=== PATIENT | female | born 1980 | race Caucasian/White ===

== ENCOUNTER 2018-04-26 13:04 | Observation (INO) ==
[2018-04-26] MEDS ORDERED: Acetaminophen 325 MG Tablet PO PRN (13:20)
--- NOTE | 2018-04-26 13:37 | P.HPOB ---
History of Present Illness Service: obstetrics Primary Care Physician: No Primary Care Physician Chief Complaint: chest pain, 29 weeks History of Present Illness: 37 yo G1 with EDC 07/11/18 by LMP c/w 8 week sonogram seen in office 04/26/18 for routine OB appointment, uncomplicated course up until today. At visit pt states over past 1-2 weeks has had daily episodes of central chest pain with radiation to throat, can occur at any time, has woken from sleep, longest episode lasted almost 4 hours. Sometimes reports palpitations with pain episodes. No shortness of breath, no edema, no vision changes, no jaw pain , no extremity numbness or tingling, denies change in diet, exercise, activity. States staying hydrated, no new or increased stress at work or home that she is aware of. Denies reflux or GERD-type symptoms. No diarrhea, no dysuria, no fevers, no sick symptoms. Endorses good movement. Did have episode of spotting about 2 weeks ago, called office and marketing operations assistant physician Dr. Stafford counseled pelvic rest, which pt has been following. Spotting lasted for 1 day, no cramps, no discharge today, denies contractions. Pain in chest is worsened with deep breath. No change in pain with laying versus standing, has not taken anything for the pain. Currently 0/10 but with deep inspiration states feels tightening and pain 3/10 pain scale. Weeks Gestation:: 29 Para: 0 : 1 Last menstrual period: 10/04/17 Total # of Miscarriage(s): 0 Total # of Abortions (Spontaneous & Elective): 0 Review of Systems All other systems reviewed negative except as stated in HPI [facility] - Medical History Medical History: Medical History (Last Updated 04/26/18 @ 13:30 by Nichol Moreno MD) History of migraine headaches - Surgical History Surgical History: Surgical History (Last Updated 04/26/18 @ 13:31 by Nichol Moreno MD) Hx of LASIK - Family History Family History: Family History (Last Updated 04/26/18 @ 13:31 by iNchol Moreno MD) Other No significant family history - Social History I have reviewed the patient's Social History: Yes - Tobacco History Second Hand Smoke Exposure: No Tobacco Use In Past 30 Days: No Smoking Status: Never smoker - Alcohol History How Often Do You Have a Drink Containing Alcohol: Never - Substance Use History Substance History: No History of Abuse - Travel History History of Recent Travel: No Recent Travel in the [place] Within the Last 8 Weeks: No Recent Travel Out of the Country Within the Last 8 Weeks: No Medications and Allergies Allergies Allergy/AdvReac Type Severity Reaction Status Date / Time No Known Allergies Allergy Verified 04/26/18 13:24 Home Medications Medication Instructions Recorded Confirmed Type 1 tab/day PO DAILY 04/26/18 04/26/18 History Exam Vital signs: Intake & Output 04/25/18 04/26/18 04/26/18 18:59 06:59 18:59 Weight 72.575 kg - Constitutional no acute distress - Routine HEENT Exam Head: Present: normocephalic, atraumatic Eye: Present: EOMI ENT: Present: mucous membranes moist - Routine Neck Exam Present: supple, full ROM - Routine Chest/Breast/Axilla Exam Chest wall: Absent: tenderness, mass Axillae: Absent: lymphadenopathy - Routine Respiratory Exam Present: CTA bilaterally. Absent: accessory muscle use - Routine Cardiovascular Exam Present: RRR. Absent: bradycardia - Routine Abdominal Exam Present: normoactive bowel sounds. Absent: tenderness Comments: gravid c/w dates, movement palpable - Routine Extremities Exam Absent: edema, tenderness - Routine Skin Exam Present: intact. Absent: cyanosis - Routine Neurological Exam Present: alert, oriented X3 Caprini VTE Risk Assessment Caprini VTE Risk Assessment: No/Low Risk (score <= 1) VTE Pharmacological Exception Reason: Epidural catheter Caprini Risk Assessment Model: Point Value = 1 Point Value = 2 Point Value = 3 Point Value = 5 Age 41-60 Minor surgery BMI > 25 kg/m2 Swollen legs Varicose veins or History of unexplained or recurrent spontaneous Oral contraceptives or hormone replacement Sepsis (< 1 month) Serious lung disease, including pneumonia (< 1 month) Abnormal pulmonary function Acute myocardial infarction Congestive heart failure (< 1 month) History of inflammatory bowel disease Medical patient at bed rest Age 61-74 Arthroscopic surgery Major open surgery (> 45 min) Laparoscopic surgery (> 45 min) Malignancy Confined to bed (> 72 hours) Immobilizing plaster cast Central venous access Age >= 75 History of VTE Family history of VTE Factor V Leiden Prothrombin [id number] Lupus anticoagulant Anticardiolipin antibodies Elevated serum homocysteine Heparin-induced thrombocytopenia Other congenital or acquired thrombophilia Stroke (< 1 month) Elective arthroplasty Hip, pelvis, or leg fracture Acute spinal cord injury (< 1 month) Prophylaxis Regimen: Total Risk Factor Score Risk Level Prophylaxis Regimen 0-1 Low Early ambulation 2 Moderate Order ONE of the following: *Sequential Compression Device (SCD) *Heparin 5000 units SQ BID 3-4 Higher Order ONE of the following medications: *Heparin 5000 units SQ TID *Enoxaparin/Lovenox 40 mg SQ daily (WT < 150 kg, CrCl > 30 mL/min) *Enoxaparin/Lovenox 30 mg SQ daily (WT < 150 kg, CrCl > 10-29 mL/min) *Enoxaparin/Lovenox 30 mg SQ BID (WT < 150 kg, CrCl > 30 mL/min) AND/OR *Sequential Compression Device (SCD) 5 or more Highest Order ONE of the following medications: *Heparin 5000 units SQ TID (Preferred with Epidurals) *Enoxaparin/Lovenox 40 mg SQ daily (WT < 150 kg, CrCl > 30 mL/min) *Enoxaparin/Lovenox 30 mg SQ daily (WT < 150 kg, CrCl > 10-29 mL/min) *Enoxaparin/Lovenox 30 mg SQ BID (WT < 150 kg, CrCl > 30 mL/min) AND *Sequential Compression Device (SCD) Assessment and Plan - Diagnosis (1) Chest pain Code(s): R07.9 - Chest pain, unspecified Status: Acute (2) 29 weeks gestation of Code(s): Z3A.29 - 29 weeks gestation of Status: Acute (3) Amniotic fluid index borderline low Code(s): O28.8 - Other abnormal findings on screening of mother Status: Acute (4) Advanced maternal age (AMA) in Status: Chronic - Plan 37 yo G1 with EDC 07/11/18, sanchez male IUP at 29w2d, admit for workup of acute chest pain 1) chest pain: cardiology consult ordered, EKG and ECHO ordered; will await cardiology recommendations for labwork; pt just had outpatient labs 03/29/18 with Hgb/Hct 03/20/30/, urine drug screen negative, passed 1h GTT (116), and Hep B, HIV, RPR negative 2) borderline low amniotic fluid: 5.36cm on office scan 04/26/18; continuous monitoring for now, IV fluid hydration, MFM consult and repeat imaging tomorrow 04/27/18 3) AMA: normal anatomy sono, male, cfDNA negative, declined msAFP; EFW on office sono 04/26/18 56.6%tile, WANG 5.36cm 4) status: 8/8 BPP in office but low amniotic fluid and low baseline FHR 110s-120s; continuous monitoring for now, MFM consult ordered for full eval as well 5) dispo: not meeting criteria Discharge Planning: not meeting criteria (1) Chest pain Qualifiers: Chest pain type: chest pain on breathing Qualified Code(s): R07.1 - Chest pain on breathing; R07.81 - Pleurodynia
[2018-04-26 15:01] LABS: Baso % (Auto) 0.2 % (0.0-2.0); Eos % (Auto) 0.7 % (0.0-4.0); Hematocrit 31.5 % (35.0-46.0); Hemoglobin 10.9 gm/dL (11.6-15.3); Lymph # (Auto) 1.3 th/mm3 (1.0-4.8); Lymph % (Auto) 19.9 % (9.0-44.0); Mean Corpuscular HGB Conc 34.8 % (32.0-36.0); Mean Corpuscular Hemoglobin 34.1 pg (27.0-34.0); Mean Corpuscular Volume 98.2 fL (80.0-100.0); Mono # (Auto) 0.5 th/mm3 (0.0-0.9); Mono % (Auto) 6.9 % (0.0-8.0); Neut # (Auto) 4.9 th/mm3 (1.8-7.7); Neut % (Auto) 72.3 % (16.0-70.0); Platelet Count 191 th/mm3 (150-450); Red Blood Count 3.21 mil/mm3 (4.00-5.30); White Blood Count 6.8 th/mm3 (4.0-11.0)
[2018-04-26 15:04] LABS: Amphetamine Urine With Conf Neg (Neg); Bacteria,Urine Moderate /hpf; Benzodiazepine Urine With Conf Neg (Neg); Bilirubin,Urine Negative (Negative); Clarity,Urine Hazy (Clear); Cocaine Urine With Conf Neg (Neg); Color,Urine Yellow (Yellw/Straw); Glucose,Urine (UA) Negative (Negative); Leukocyte Esterase,Urine Negative (Negative); Mucus,Urine Few /lpf (Occasional); Nitrite,Urine Negative (Negative); Opiates Urine With Conf Neg (Neg); Specific Gravity,Urine 1.011 (1.002-1.035); Squamous Epithelial Cell,Urine <1 /hpf (0-5)
[2018-04-26 15:07] LABS: Cannabinoid Urine With Conf Neg (Neg)
[2018-04-26 15:24] LABS: Anion Gap 10 meq/L (5-15); Blood Urea Nitrogen 8 mg/dL (7-18); Calcium 8.6 mg/dL (8.5-10.1); Carbon Dioxide 24.2 meq/L (21.0-32.0); Chloride 107 meq/L (98-107); Glomerular Filtration Rate Greater Than 89 mL/min (>89); Glucose,Random 69 mg/dL (74-106); Potassium 3.7 meq/L (3.5-5.1); Sodium 141 meq/L (136-145)
--- NOTE | 2018-04-26 15:34 | ECHRPT ---
Indication: CHEST PAIN/29 WEEKS CONCLUSIONS No regional wall motion abnormalities are present. Normal left ventricular size. Wall thickness is normal. The left ventricular systolic function is normal with an estimated ejectio n fraction in the range of 60-65%. There is trace tricuspid valve regurgitation. BP: / HR: Rhythm: MEASUREMENTS (Male / Female) Normal Values Technical Quality: 2D ECHO LV Diastolic Diameter PLAX 4.4 cm 4.2 - 5.9 / 3.9 - 5.3 cm LV Systolic Diameter PLAX 3.0 cm IVS Diastolic Thickness 0.7 cm 0.6 - 1.0 / 0.6 - 0.9 cm LVPW Diastolic Thickness 0.7 cm 0.6 - 1.0 / 0.6 - 0.9 cm LV Relative Wall Thickness 0.3 RV Internal Dim ED PLAX 2.6 cm LVOT Diameter 1.9 cm Aortic Root Diameter 2.7 cm LA Systolic Diameter LX 2.5 cm 3.0 - 4.0 / 2.7 - 3.8 cm M-MODE AV Cusp Separation MM 1.9 cm DOPPLER AV Peak Velocity 134.0 cm/s AV Peak Gradient 7.2 mmHg AV Mean Gradient 4.0 mmHg AV Velocity Time Integral 23.7 cm LVOT Peak Velocity 114.0 cm/s LVOT Peak Gradient 5.2 mmHg LVOT Velocity Time Integral 17.4 cm AV Area Cont Eq vti 2.1 cm AV Area Cont Eq pk 2.4 cm Mitral E Point Velocity 68.6 cm/s Mitral A Point Velocity 40.5 cm/s Mitral E to A Ratio 1.7 LV E' Lateral Velocity 14.9 cm/s Mitral E to LV E' Lateral Ratio 4.6 LV E' Septal Velocity 11.7 cm/s Mitral E to LV E' Septal Ratio 5.9 TR Peak Velocity 160.0 cm/s TR Peak Gradient 10.2 mmHg PV Peak Velocity 51.9 cm/s PV Peak Gradient 1.1 mmHg FINDINGS LEFT VENTRICLE No regional wall motion abnormalities are present. Normal left ventricular size. Wall thickness is normal. The left ventricular systolic function is normal with an estimated ejectio n fraction in the range of 60-65%. RIGHT VENTRICLE Normal right ventricular size and systolic function. LEFT ATRIUM The left atrial size is normal. RIGHT ATRIUM The right atrial size is normal. ATRIAL SEPTUM Normal atrial septal thickness without atrial level shunting by limited color doppler interrogation. AORTA The aortic root and proximal ascending aorta are normal in size on limited imaging. MITRAL VALVE Structurally normal mitral valve. No mitral valve stenosis or regurgitation. AORTIC VALVE Trileaflet aortic valve. No aortic valve stenosis or regurgitation. TRICUSPID VALVE There is trace tricuspid valve regurgitation. PULMONARY VALVE The pulmonary valve is not well visualized. VESSELS The inferior vena cava is normal in size. PERICARDIUM No pericardial effusion. Darío Medrano MD (Electronically Signed) Final Date:26 April 2018 15:33
[2018-04-26 15:57] LABS: Creatine Kinase 31 U/L (26-192)
--- NOTE | 2018-04-26 16:01 | MB ---
cc: Darío Medrano MD DATE: 04/26/2018 REASON FOR CONSULTATION: Chest pain. HISTORY OF PRESENT ILLNESS: The patient is a 37-year-old white female with a history of migraine headaches, who was admitted to the hospital with chest pain. The patient, who is 29 weeks , developed a substernal chest discomfort about 4 days ago without associated shortness of breath, nausea or diaphoresis. The first 2 days, the chest discomfort would last only a few minutes, occurring sporadically throughout the day. The last couple of days, the chest discomfort has been more constant, lasting several hours at a time in a constant fashion. Occasionally, taking a deep breath and certain position changes exacerbate the chest pain. She denies cough, hemoptysis, pedal edema, dizziness, syncope, near syncope, palpitations. PAST MEDICAL HISTORY: Migraine headaches. CARDIAC MEDICATIONS AT HOME: None. ALLERGIES: NO KNOWN DRUG ALLERGIES. FAMILY HISTORY: There is no significant family history of early myocardial infarction. SOCIAL HISTORY: The patient denies alcohol or tobacco abuse. REVIEW OF SYSTEMS: As in the history of present illness, otherwise negative or noncontributory. She also denies melena, dyspepsia, bright red blood per rectum, abdominal pain. PHYSICAL EXAMINATION: VITAL SIGNS: Blood pressure 106/77 with a pulse of 83, respirations 18. GENERAL: She is a well-developed, well-nourished white female, in no acute distress. NECK: Jugular venous pressure is normal. Carotid pulses are 2+ bilaterally and without bruits. CHEST: Reveals clear lungs smith. CARDIAC: She has a regular rhythm and rate without S3, S4, or murmur. ABDOMEN: She has a soft, nontender abdomen. Bowel sounds are present. There is no definite hepatosplenomegaly. EXTREMITIES: Reveals no clubbing, cyanosis or edema. LABORATORY DATA: EKG shows normal sinus rhythm, normal EKG. LABORATORY DATA: Includes normal CBC. IMPRESSION: Exceedingly atypical chest pains in this 37-year-old white female with a history of migraine headaches. Despite prolonged chest discomforts in the last 4 days, EKG is normal. The patient has no risk factors for coronary disease. The chest pain appears to be somewhat more musculoskeletal in origin, increasing with certain position changes. Overall, clinical suspicion for pulmonary embolism is low. RECOMMENDATIONS: 1. Noncardiac chest pain evaluation. 2. Check a single set of cardiac enzymes. 3. Check a 2-D echo to assess her left ventricular function. 4. We will followup as needed for any abnormalities seen on echocardiogram and laboratory testing. MD TOSHIA Hadley/ct , 03:20 PM , 03:27 PM
--- NOTE | 2018-04-27 07:12 | P.OBANTE ---
Subjective Interval History: no new complaints, feeling well, resting in bed, no current chest pain reported ; endorses good movement Antepartum ROS: Reports: movement normal Denies: New complaints, Loss of fluid, Vaginal bleeding, Contractions Objective Vital Signs and I&O: Vital Signs 04/26/18 13:29 04/26/18 13:30 04/26/18 14:40 Temperature 98.6 F Pulse Rate 93 H 92 H Respiratory Rate 18 Blood Pressure 106/77 04/26/18 15:15 04/26/18 15:25 04/26/18 15:55 Temperature Pulse Rate 83 88 85 Respiratory Rate Blood Pressure 04/26/18 16:45 04/26/18 16:48 04/26/18 16:49 Temperature 98.1 F Pulse Rate 87 88 Respiratory Rate 18 Blood Pressure 99/60 L 04/26/18 17:25 04/26/18 17:45 04/26/18 17:55 Temperature Pulse Rate 91 H 100 H 111 H Respiratory Rate Blood Pressure 04/26/18 18:25 04/26/18 19:55 04/26/18 19:59 Temperature 98.4 F Pulse Rate 94 H 99 H 87 Respiratory Rate 18 Blood Pressure 94/65 L 04/26/18 21:55 04/26/18 23:10 04/26/18 23:55 Temperature Pulse Rate 86 81 72 Respiratory Rate Blood Pressure 85/55 L 04/27/18 01:55 04/27/18 04:55 04/27/18 05:00 Temperature 98.4 F Pulse Rate 72 74 Respiratory Rate 18 Blood Pressure 83/48 L 04/27/18 05:45 Temperature Pulse Rate 72 Respiratory Rate Blood Pressure Intake & Output 04/26/18 04/27/18 04/27/18 18:59 06:59 18:59 Intake Total 1999 Balance 1999 Weight 72.575 kg Intake: IV 1999 LR 1000 mL Inj 1,000 ML @ 100 1999 mls/hr IV.CONT .Q10H [facility] Rx#: [id number] Other: Weight On Admission 72.575 kg Lab and Micro Results: Laboratory Results - last 24 hr 04/26/18 04/26/18 04/26/18 14:30 14:30 14:30 WBC 6.8 RBC 3.21 L Hgb 10.9 L Hct 31.5 L MCV 98.2 MCH 34.1 H MCHC 34.8 RDW 12.0 Plt Count 191 MPV 7.0 Neut % (Auto) 72.3 H Lymph % (Auto) 19.9 [place] % (Auto) 6.9 Eos % (Auto) 0.7 Baso % (Auto) 0.2 Neut # (Auto) 4.9 Lymph # (Auto) 1.3 [place] # (Auto) 0.5 Eos # (Auto) 0.0 Baso # (Auto) 0.0 WBC Differential . Differential Comment Auto diff final Sodium 141 Potassium 3.7 Chloride 107 Carbon Dioxide 24.2 Anion Gap 10 BUN 8 Creatinine 0.56 Estimated GFR Greater than 89 Random Glucose 69 L Calcium 8.6 Total Creatine Kinase Troponin I Urine Color Urine Clarity Urine pH Ur Specific War Urine Protein Urine Glucose (UA) Urine Ketones Urine Occult Blood Urine Nitrate Urine Bilirubin Urine Urobilinogen Ur Leukocyte Esterase Urine RBC Urine WBC Ur Squamous Epith Cells Urine Bacteria Urine Mucus Micro UA Comment Ur Microscopic Review Urine Culture Comments Urine Opiates Screen Ur Barbiturates Screen Ur Amphetamine Screen U Benzodiazepines Scrn Urine Cocaine Screen U Cannabinoids Screen Blood Type O Positive Blood Type Recheck Required 04/26/18 04/26/18 04/26/18 14:30 14:30 14:30 WBC RBC Hgb Hct MCV MCH MCHC RDW Plt Count MPV Neut % (Auto) Lymph % (Auto) [place] % (Auto) Eos % (Auto) Baso % (Auto) Neut # (Auto) Lymph # (Auto) [place] # (Auto) Eos # (Auto) Baso # (Auto) WBC Differential Differential Comment Sodium Potassium Chloride Carbon Dioxide Anion Gap BUN Creatinine Estimated GFR Random Glucose Calcium Total Creatine Kinase 31 Troponin I Less than 0.02 L Urine Color Yellow Urine Clarity Hazy H Urine pH 6.0 Ur Specific War 1.011 Urine Protein Negative Urine Glucose (UA) Negative Urine Ketones Negative Urine Occult Blood Negative Urine Nitrate Negative Urine Bilirubin Negative Urine Urobilinogen Less than 2 Ur Leukocyte Esterase Negative Urine RBC Less than 1 Urine WBC 4 Ur Squamous Epith Cells <1 Urine Bacteria Moderate H Urine Mucus Few H Micro UA Comment Culture indicated Ur Microscopic Review Not Reportable Urine Culture Comments Culture indicated Urine Opiates Screen Neg Ur Barbiturates Screen Neg Ur Amphetamine Screen Neg U Benzodiazepines Scrn Neg Urine Cocaine Screen Neg U Cannabinoids Screen Neg Blood Type Blood Type Recheck Physical Exam: GENERAL: Well-nourished, well-developed patient. CARDIOVASCULAR: Regular rate and rhythm without murmurs, gallops, or rubs. RESPIRATORY: Breath sounds equal bilaterally. No accessory muscle use. ABDOMEN/GI: Abdomen soft, non-tender. Fundus: c/w dates GENITOURINARY: External Genitalia: deferred FHT's: Cat I tracing since admission EXTREMITIES: No cyanosis or edema, non-tender, without signs of DVT. Assessment and Plan - Diagnosis (1) Chest pain Code(s): R07.9 - Chest pain, unspecified Status: Acute (2) 29 weeks gestation of Code(s): Z3A.29 - 29 weeks gestation of Status: Acute (3) Amniotic fluid index borderline low Code(s): O28.8 - Other abnormal findings on screening of mother Status: Acute (4) Advanced maternal age (AMA) in Status: Chronic - Plan 37 yo G1 with EDC 07/11/18, sanchez male IUP at 29w3d, admit for workup of acute chest pain 1) chest pain: s/p cardiology consult; EKG, ECHO, and cardiac enzymes negative/ normal; suspect MSK and anxiety cause of pain; no additional intervention warranted at this time 2) borderline low amniotic fluid: 5.36cm on office scan 04/26/18; reactive tracing since admission, s/p IV fluid hydration, MFM consult and repeat imaging ordered for 04/27/18 3) AMA: normal anatomy sono, male, cfDNA negative, declined msAFP; EFW on office sono 04/26/18 56.6%tile, WANG 5.36cm 4) status: 8/8 BPP in office 04/26/18 but low amniotic fluid, MFM consult ordered for full eval as well 5) dispo: pending MFM recommendations & imaging this AM Discharge Planning: pending MFM eval (1) Chest pain Qualifiers: Chest pain type: chest pain on breathing Qualified Code(s): R07.1 - Chest pain on breathing; R07.81 - Pleurodynia
--- NOTE | 2018-04-27 07:37 | P.CONMF ---
History of Present Illness Consult date: 04/27/18 Requesting Physician: Nichol Moreno Reason for Consult: Oligohydramnios Primary Care Physician: Shannan Primary Care Physician Chief Complaint: chest pain, 29 weeks History of Present Illness: 37-year-old at 29w2d with SHASHANK 07/11/18 admitted 04/26 with complaints of chest pain. She reported chest pain since Monday 04/23, which she characterized as a deep ache. It was previously intermittent but became constant on 04/25. She has been evaluated by Cardiology and had a normal echocardiogram. She reports the chest pain has completely resolved. Ultrasound performed in OB office on 04/26 showed an estimated weight of 1408 grams/3 lb, 2 oz (56%ile) with an WANG of 5.4 cm. Patient denies contractions, abdominal pain, leakage of fluid, or vaginal bleeding. Speculum examination and Amnisure test were negative for rupture of membranes. Patient is of advance maternal age. She reports that she had a cell-free DNA test performed at OB office, which was low risk. She reports ultrasound in OB office showed no abnormalities or markers. Weeks Gestation:: 29 Medications and Allergies Active Medications: Active Medications Acetaminophen (Tylenol) 650 mg PO Q4H PRN PRN Reason: PAIN SCALE 1 TO 5 Lactated Ringer's (Lr 1000 Ml Inj) 1,000 mls @ 100 mls/hr IV.CONT .Q10H [facility] Last Admin: 04/27/18 06:05 Dose: 100 mls/hr Ondansetron HCl (Zofran Odt) 4 mg PO Q6H PRN PRN Reason: NAUSEA OR VOMITING Vit/Calcium/Iron/Folic Ac (Stuartnatal Plus 3) 1 tab PO DAILY [facility] Sodium Chloride (Ns Flush) 2 ml IV.FLUSH BID [facility]IE Last Admin: 04/27/18 06:05 Dose: Not Given Sodium Chloride (Ns Flush) 2 ml IV.FLUSH PRN PRN PRN Reason: FLUSH AFTER USING IV ACCESS Allergies Allergy/AdvReac Type Severity Reaction Status Date / Time No Known Allergies Allergy Verified 04/26/18 13:24 Home Medications Medication Instructions Recorded Confirmed Type 1 tab/day PO DAILY 04/26/18 04/26/18 History PMFSH - Family History Family History: Family History (Last Updated 04/26/18 @ 13:31 by Nichol Moreno MD) Other No significant family history - Tobacco History Second Hand Smoke Exposure: No Tobacco Use In Past 30 Days: No Smoking Status: Never smoker - Alcohol History How Often Do You Have a Drink Containing Alcohol: Never - Substance Use History Substance History: No History of Abuse - Travel History History of Recent Travel: No Recent Travel in the [place] Within the Last 8 Weeks: No Recent Travel Out of the Country Within the Last 8 Weeks: No - Immunization History Tetanus Immunization: Unsure Hx Influenza Vaccine This Season: Yes [employer] History SIZE MIXER History: Reports history of cervical dysplasia but no history of cervical excisional procedures such as LEEP or Cone Biopsy Obstetrical History: Physical Examination Vital Signs: Vital Signs - 24 hr 04/26/18 13:29 04/26/18 13:30 04/26/18 14:40 Temperature 98.6 F Pulse Rate 93 H 92 H Respiratory Rate 18 Blood Pressure 106/77 04/26/18 15:15 04/26/18 15:25 04/26/18 15:55 Temperature Pulse Rate 83 88 85 Respiratory Rate Blood Pressure 04/26/18 16:45 04/26/18 16:48 04/26/18 16:49 Temperature 98.1 F Pulse Rate 87 88 Respiratory Rate 18 Blood Pressure 99/60 L 04/26/18 17:25 04/26/18 17:45 04/26/18 17:55 Temperature Pulse Rate 91 H 100 H 111 H Respiratory Rate Blood Pressure 04/26/18 18:25 04/26/18 19:55 04/26/18 19:59 Temperature 98.4 F Pulse Rate 94 H 99 H 87 Respiratory Rate 18 Blood Pressure 94/65 L 04/26/18 21:55 04/26/18 23:10 04/26/18 23:55 Temperature Pulse Rate 86 81 72 Respiratory Rate Blood Pressure 85/55 L 04/27/18 01:55 04/27/18 04:55 04/27/18 05:00 Temperature 98.4 F Pulse Rate 72 74 Respiratory Rate 18 Blood Pressure 83/48 L 04/27/18 05:45 04/27/18 06:55 Temperature Pulse Rate 72 86 Respiratory Rate Blood Pressure Results - Labs CBC & Chem 7: 04/26/18 14:30 04/26/18 14:30 Labs: Laboratory Results - last 24 hr 04/26/18 04/26/18 04/26/18 14:30 14:30 14:30 WBC 6.8 RBC 3.21 L Hgb 10.9 L Hct 31.5 L MCV 98.2 MCH 34.1 H MCHC 34.8 RDW 12.0 Plt Count 191 MPV 7.0 Neut % (Auto) 72.3 H Lymph % (Auto) 19.9 [place] % (Auto) 6.9 Eos % (Auto) 0.7 Baso % (Auto) 0.2 Neut # (Auto) 4.9 Lymph # (Auto) 1.3 [place] # (Auto) 0.5 Eos # (Auto) 0.0 Baso # (Auto) 0.0 WBC Differential . Differential Comment Auto diff final Sodium 141 Potassium 3.7 Chloride 107 Carbon Dioxide 24.2 Anion Gap 10 BUN 8 Creatinine 0.56 Estimated GFR Greater than 89 Random Glucose 69 L Calcium 8.6 Total Creatine Kinase Troponin I Urine Color Urine Clarity Urine pH Ur Specific [place] Urine Protein Urine Glucose (UA) Urine Ketones Urine Occult Blood Urine Nitrate Urine Bilirubin Urine Urobilinogen Ur Leukocyte Esterase Urine RBC Urine WBC Ur Squamous Epith Cells Urine Bacteria Urine Mucus Micro UA Comment Ur Microscopic Review Urine Culture Comments Urine Opiates Screen Ur Barbiturates Screen Ur Amphetamine Screen U Benzodiazepines Scrn Urine Cocaine Screen U Cannabinoids Screen Blood Type O Positive Blood Type Recheck Required 04/26/18 04/26/18 04/26/18 14:30 14:30 14:30 WBC RBC Hgb Hct MCV MCH MCHC RDW Plt Count MPV Neut % (Auto) Lymph % (Auto) [place] % (Auto) Eos % (Auto) Baso % (Auto) Neut # (Auto) Lymph # (Auto) [place] # (Auto) Eos # (Auto) Baso # (Auto) WBC Differential Differential Comment Sodium Potassium Chloride Carbon Dioxide Anion Gap BUN Creatinine Estimated GFR Random Glucose Calcium Total Creatine Kinase 31 Troponin I Less than 0.02 L Urine Color Yellow Urine Clarity Hazy H Urine pH 6.0 Ur Specific [place] 1.011 Urine Protein Negative Urine Glucose (UA) Negative Urine Ketones Negative Urine Occult Blood Negative Urine Nitrate Negative Urine Bilirubin Negative Urine Urobilinogen Less than 2 Ur Leukocyte Esterase Negative Urine RBC Less than 1 Urine WBC 4 Ur Squamous Epith Cells <1 Urine Bacteria Moderate H Urine Mucus Few H Micro UA Comment Culture indicated Ur Microscopic Review Not Reportable Urine Culture Comments Culture indicated Urine Opiates Screen Neg Ur Barbiturates Screen Neg Ur Amphetamine Screen Neg U Benzodiazepines Scrn Neg Urine Cocaine Screen Neg U Cannabinoids Screen Neg Blood Type Blood Type Recheck - Imaging Ultrasound performed in testing unit: -Breech presentation -Estimated weight 1421 grams/3 lb, 2 oz (48%ile) -Anterior placenta -WANG 13.8 cm -Normal umbilical artery Doppler studies Impression and Recommendations Counselin-year-old at 29w2d with SHASHANK 07/11/18: -Oligohydramnios on OB ultrasound 04/26/18 with WANG 5.4 cm. -Speculum examination negative, per OB. -Amnisure test in office negative, per OB. -Advanced maternal age -Cell-free DNA per chart, negative -History of chest pain, resolved -Normal echocardiogram -s/p Cardiology evaluation Recommendations: -Daily kick counts -Routine obstetric care Discussed with OB, Dr. Moreno. Professional Services: Thank you for allowing us to participate in the care of your Obstetrical patient. Consultation time: [40] minutes
[2018-04-27] MEDS ORDERED: Prenatal Vit/Ca/Iron/Folic Acid Tablet PO SCH ×2 (09:00)
--- NOTE | 2018-04-27 12:45 | ECG ---
Date Performed: 04/26/2018 Time Performed: 13:31:47 PTAGE: 37 years EKG: Sinus rhythm NORMAL ECG NO PREVIOUS TRACING DOCTOR: Mukund Tavares Interpretating Date/Time 04/27/2018 12:42:05
== END 2018-04-27 08:37 | disposition home or self-care (01) ==
LOC: H2E
PROVIDERS: ADMIT Obstetrics & Gynecology; ATTEND Obstetrics & Gynecology